=== PATIENT | male | born 1965 | race Caucasian/White ===

== ENCOUNTER 2017-08-31 23:54 | Emergency (ER) | payer SELFPAY, OTHER ==
[2017-09-01 01:42] LABS: ADD UMIC NO; UR ASCORBIC ACID NEGATIVE (NEGATIVE); UR BILIRUBIN (Dip) NEGATIVE (NEGATIVE); UR BLOOD (Dip) NEGATIVE (NEGATIVE); UR CLARITY CLEAR (CLEAR); UR COLOR YELLOW (YELLOW); UR GLUCOSE (Dip) NEGATIVE (NEGATIVE); UR KETONES (Dip) NEGATIVE (NEGATIVE); UR LEUKOCYTE ESTERASE (Dip) NEGATIVE Leu/ul (NEGATIVE); UR NITRITE (Dip) NEGATIVE (NEGATIVE); UR SPECIFIC GRAVITY (Dip) 1.023 (1.003-1.030); UR TOTAL PROTEIN (Dip) NEGATIVE (NEGATIVE); UR UROBILINOGEN (Dip) 1+ mg/dL (NEGATIVE)
== END 2017-09-01 02:08 | disposition home or self-care (01) ==
LOC: E/R 23:54
DX: R33.9 Retention of urine, unspecified (principal)
CPT/HCPCS: 51702; 81003; 87086; 99284-25

== ENCOUNTER 2017-09-02 06:28 | Emergency (ER) | payer MEDICAID ==
[2017-09-02] MEDS: ACETAMINOPHEN 325 MG TAB PO (07:29)
== END 2017-09-02 08:10 | disposition home or self-care (01) ==
LOC: FTE 06:28
DX: R33.9 Retention of urine, unspecified (principal)
CPT/HCPCS: 99284; Z7502